=== PATIENT | female | born 2000 | race Native Hawaiian/Other Pacific Islander ===

== ENCOUNTER 2021-08-29 02:37 | Emergency (ER) | payer OTHER ==
[~2021-08-29] VITALS: Ht 162.6 cm; Wt 87.7 kg
[2021-08-29] MEDS ORDERED: DEXA4 PO (02:50)
[2021-08-29] MEDS ORDERED: ALBU8HFA IH (02:50)
[2021-08-29] MEDS ORDERED: LORazepam 1 MG TABLET PO ONE (03:30)
[2021-08-29 04:35] VITALS: BP 121/74
== END 2021-08-29 05:50 | disposition home or self-care (01) ==
LOC: EMS 02:39
DX: J45.909 Unspecified asthma, uncomplicated (principal); F41.9 Anxiety disorder, unspecified; Z20.822 Contact with and (suspected) exposure to COVID-19; Z88.1 Allergy status to other antibiotic agents; Z79.899 Other long term (current) drug therapy
CPT/HCPCS: 93005; 99284; U0003; Z7502; Z7610